=== PATIENT | male | born 1950 | race Caucasian/White ===

== ENCOUNTER 2018-11-17 11:27 | Emergency (ER) | payer MEDICARE, BC ==
[2018-11-17 11:32] VITALS: TEMP 97.8
--- NOTE | 2018-11-17 11:48 | ED ---
Arrhythmia/Palpitations HPI - General Chief Complaint: Arrhythmia/Palpitations Stated Complaint: abnormal EKG Time Seen by Provider: 11/17/18 11:34 Source: patient Mode of arrival: ambulatory Limitations: no limitations - History of Present Illness Initial Comments: 68-year-old male being sent from Dr. Abad office for new onset A. fib. Patient states he's had symptoms of anxiety and dizziness for the last month. He admits to intermittent shortness of breath but denies any chest pain. Patient has no history of cardiac arrhythmias or cardiac disease. He denies any history of thyroid disease or stimulant use. The patient is state that the y just started seeing this primary care physician as they just moved back to [place]. Patient has no established slp. Patient denies any history of DVT/PE, recent surgery, active cancer. - Related Data Home Medications Medication Instructions Recorded Confirmed Tamsulosin [Flomax] 0.4 mg PO DAILY 11/17/18 11/17/18 Previous Rx's Medication Instructions Recorded Aspirin 81 mg PO DAILY #30 chewable 11/17/18 Metoprolol Tartrate 25 mg PO BID #60 tab 11/17/18 Allergies Allergy/AdvReac Type Severity Reaction Status Date / Time No Known Allergies Allergy Verified 11/17/18 11:29 Review of Systems ROS Statement: Those systems with pertinent positive or pertinent negative responses have been documented in the HPI. Review of Systems Constitutional: Denies fever, chills Eyes: Denies change in vision, Denies pain Ears, nose, mouth, throat: Denies headaches, Denies sore throat Cardiovascular: Denies chest pain. Positive palpitations Respiratory: Positive shortness of breath, Denies cough Gastrointestinal: Denies abdominal pain. Denies nausea, vomiting, diarrhea. Genitourinary: Denies hematuria, Denies infections Musculoskeletal: Denies pain, Denies swelling Integumentary: Denies rash Neurological: Denies headache, focal weakness, focal numbness Psychiatric: Positive anxiety, Denies depression Hematologic/Lymphatic: Denies easy bleeding or bruising ROS Other: All systems not noted in ROS Statement are negative. Past Medical History Past Medical History: Prostate Disorder History of Any Multi-Drug Resistant Organisms: None Reported Past Surgical History: Orthopedic Surgery Past Psychological History: Anxiety Smoking Status: Never smoker Past Alcohol Use History: Daily Past Drug Use History: None Reported General Exam - General Exam Comments Initial Comments: General: Awake, alert, No acute Distress HENT: Normocephalic. Atraumatic Eyes: PERRL. EOMI. No scleral icterus. No injected conjunctiva Neck: Full ROM Chest/Lungs: Clear to auscultation bilaterally. No wheezing, rhonchi, or rales Cardiac: Irregular irregular. No murmurs or rubs. No edema. No abdominal bruit Abdomen/GI: Soft, nontender, nondistended. No rebound, guarding, or rigidity. Musculoskeletal: Full ROM Skin: Warm, dry, intact Neurologic: A/Ox3, no weakness, no sensory deficit, no abnormal gait, no coordination deficit Limitations: no limitations Course Vital Signs 11/17/18 11/17/18 11/17/18 11:29 12:06 13:07 Temperature 97.8 F Pulse Rate 89 89 82 Respiratory 18 18 20 Rate Blood Pressure 131/85 131/85 O2 Sat by Pulse 96 98 97 Oximetry EKG Findings - EKG Comments: EKG Findings:: EKG shows atrial fibrillation at a rate of [address] segment elevation, depression. No prolonged QT/QTc or WA interval. N Medical Decision Making - Medical Decision Making 68-year-old male presenting from primary care physician's office of new-onset A. fib. Initial exam the patient is awake, alert, no acute distress. VSS. Patient is not in A. fib with RVR. His EKG from the physician's office shows a rate of 82. His CHADVASC2 score is 1. Patient's laboratory workup here is unremarkable. He has no shortness of breath or symptoms consistent with a PE, and therefore that workup was not done. He has no chest pain, back pain, pulse differential to suggest that his symptoms are secondary to aortic pathology. I spoke with Dr. Sonu VILLARREAL who saw the patient. She stated that the family was concerned about being discharged home on Eliquis secondary to the patient's father's history of intracranial hemorrhage. I spoke with Dr. Sinha, who spoke with the patient and cardiology. At this and the patient will be discharged home on a low-dose beta ralph as well as Aspirin. He is instructed to follow u p with Dr. Fried outpatient. No further emergent workup indicated. The patient was given return to ED instructions. They were instructed to follow up with their primary care provider. Stable for discharge at this time. - Lab Data Result diagrams: 11/17/18 11:55 11/17/18 11:55 Lab Results 11/17/18 11/17/18 11/17/18 Range/Units 11:55 11:55 11:55 WBC 5.0 (3.8-10.6) k/uL RBC 4.31 (4.30-5.90) m/uL Hgb 13.9 (13.0-17.5) gm/dL Hct 41.6 (39.0-53.0) % MCV 96.6 (80.0-100.0) fL MCH 32.3 (25.0-35.0) pg MCHC 33.4 (31.0-37.0) g/dL RDW 14.4 (11.5-15.5) % Plt Count 217 (150-450) k/uL Neutrophils % 80 % Lymphocytes % 10 % Monocytes % 6 % Eosinophils % 2 % Basophils % 1 % Neutrophils # 4.0 (1.3-7.7) k/uL Lymphocytes # 0.5 L (1.0-4.8) k/uL Monocytes # 0.3 (0-1.0) k/uL Eosinophils # 0.1 (0-0.7) k/uL Basophils # 0.0 (0-0.2) k/uL Sodium 139 (137-145) mmol/L Potassium 4.4 (3.5-5.1) mmol/L Chloride 104 (98-107) mmol/L Carbon Dioxide 27 (22-30) mmol/L Anion Gap 8 mmol/L BUN 10 (9-20) mg/dL Creatinine 0.79 (0.66-1.25) mg/dL Est GFR (CKD-EPI)AfAm >90 (>60 ml/min/1.73 sqM) Est GFR (CKD-EPI)NonAf >90 (>60 ml/min/1.73 sqM) Glucose 113 H (74-99) mg/dL Calcium 9.2 (8.4-10.2) mg/dL Magnesium 2.1 (1.6-2.3) mg/dL Troponin I (0.000-0.034) ng/mL NT-Pro-B Natriuret Pep 1300 pg/mL TSH 1.120 (0.465-4.680) mIU/L 07/29/19 Range/Units 11:55 WBC (3.8-10.6) k/uL RBC (4.30-5.90) m/uL Hgb (13.0-17.5) gm/dL Hct (39.0-53.0) % MCV (80.0-100.0) fL MCH (25.0-35.0) pg MCHC (31.0-37.0) g/dL RDW (11.5-15.5) % Plt Count (150-450) k/uL Neutrophils % % Lymphocytes % % Monocytes % % Eosinophils % % Basophils % % Neutrophils # (1.3-7.7) k/uL Lymphocytes # (1.0-4.8) k/uL Monocytes # (0-1.0) k/uL Eosinophils # (0-0.7) k/uL Basophils # (0-0.2) k/uL Sodium (137-145) mmol/L Potassium (3.5-5.1) mmol/L Chloride (98-107) mmol/L Carbon Dioxide (22-30) mmol/L Anion Gap mmol/L BUN (9-20) mg/dL Creatinine (0.66-1.25) mg/dL Est GFR (CKD-EPI)AfAm (>60 ml/min/1.73 sqM) Est GFR (CKD-EPI)NonAf (>60 ml/min/1.73 sqM) Glucose (74-99) mg/dL Calcium (8.4-10.2) mg/dL Magnesium (1.6-2.3) mg/dL Troponin I <0.012 (0.000-0.034) ng/mL NT-Pro-B Natriuret Pep pg/mL TSH (0.465-4.680) mIU/L Disposition Clinical Impression: Atrial fibrillation Disposition: HOME SELF-CARE Condition: Good Instructions (If sedation given, give patient instructions): A-fib (Atrial Fibrillation) (ED), A-fib (Atrial Fibrillation) (DC) Prescriptions: Aspirin 81 mg PO DAILY #30 chewable Metoprolol Tartrate 25 mg PO BID #60 tab Is patient prescribed a controlled substance at d/c from ED?: No Referrals: Yisel Abad DO [Primary Care Provider] - 1-2 days Saturnino Fried MD [STAFF PHYSICIAN] - 1-2 days
[2018-11-17 12:11] LABS: Basophils % (A) 1 %; Eosinophils # (A) 0.1 k/uL (0-0.7); Eosinophils % (A) 2 %; HCT 41.6 % (39.0-53.0); HGB 13.9 gm/dL (13.0-17.5); Lymphocytes # (A) 0.5 k/uL (1.0-4.8); Lymphocytes % (A) 10 %; MCH 32.3 pg (25.0-35.0); MCHC 33.4 g/dL (31.0-37.0); MCV 96.6 fL (80.0-100.0); Mean Platelet Volume 6.9; Monocytes # (A) 0.3 k/uL (0-1.0); Monocytes % (A) 6 %; Neutrophils % (A) 80 %; Platelet Count 217 k/uL (150-450); RBC 4.31 m/uL (4.30-5.90); RDW 14.4 % (11.5-15.5)
[2018-11-17 12:21] LABS: African American GFR (CKD) >90 (>60 ml/min/1.73 sqM); Anion Gap 8 mmol/L; Blood Urea Nitrogen 10 mg/dL (9-20); Calcium 9.2 mg/dL (8.4-10.2); Carbon Dioxide 27 mmol/L (22-30); Chloride 104 mmol/L (98-107); Glucose 113 mg/dL (74-99); Magnesium 2.1 mg/dL (1.6-2.3); Potassium 4.4 mmol/L (3.5-5.1); Sodium 139 mmol/L (137-145)
--- NOTE | 2018-11-17 12:36 | XR ---
EXAMINATION TYPE: XR chest 2V DATE OF EXAM: 11/17/2018 COMPARISON: NONE HISTORY: Chest pain TECHNIQUE: Frontal and lateral views of the chest are obtained. FINDINGS: There is no focal air space opacity, pleural effusion, or pneumothorax seen. The cardiac silhouette size is within normal limits. The osseous structures are intact. There are overlying car diac leads. The aorta is dense. IMPRESSION: No acute cardiopulmonary process.
[2018-11-17 15:03] VITALS: BP 132/74; PULSE 79; RESP 18
--- NOTE | 2018-11-17 15:31 | P.CONS ---
History of Present Illness - History of Present Illness Patient is a pleasant 68-year-old gentleman was sent in from Dr. [place] for new onset atrial fibrillation although present patient is rate controlled. Patient recently moved from to [place] from [place] went to see Dr. Han's office because of his anxiety symptoms and dizziness has been going on for more than a month. Patient denied any shortness of breath chest pain. Patient denied any fever chills nausea vomiting dysuria although lab workup is negative including TSH. Patient has on and off palpitations and his says his heart rate goes to as high as 100. Patient's GARCIA - vasc score is 1, just states patient denied any history of emphysematous hypertension although there is mildly elevated BNP there is no evidence of congestive heart failure clinically. Because of that reason I do not believe patient will need to be admitted to the hospital patient will require aspirin 81 mg and patient will be discharged on 25 twice a day of metoprolol. I discussed his case with cardiology on phone was agreeable to follow up with him as an outpatient referral will be given to the patient and patient will be discharged today from ER and probably will not need any hospitalization and ER physician is agreeable with the plan and patient is agreeable with the plan discussed with the patient and family members. Review of Systems REVIEW OF SYSTEMS: CONSTITUTIONAL: No fever, no malaise, no fatigue. HEENT: No recent visual problems or hearing problems. Denied any sore throat. CARDIOVASCULAR: No chest pain, orthopnea, PND, PULMONARY: No shortness of breath, no cough, no hemoptysis. GASTROINTESTINAL: No diarrhea, no nausea, no vomiting, no abdominal pain. NEUROLOGICAL: No headaches, no weakness, no numbness. HEMATOLOGICAL: Denies any bleeding or petechiae. GENITOURINARY: Denies any burning micturition, frequency, or urgency. MUSCULOSKELETAL/RHEUMATOLOGICAL: Denies any joint pain, swelling, or any muscle pain. ENDOCRINE: Denies any polyuria or polydipsia. The rest of the 14-point review of systems is negative. Past Medical History Past Medical History: Prostate Disorder History of Any Multi-Drug Resistant Organisms: None Reported Past Surgical History: Orthopedic Surgery Past Psychological History: Anxiety Smoking Status: Never smoker Past Alcohol Use History: Daily Past Drug Use History: None Reported Medications and Allergies Home Medications Medication Instructions Recorded Confirmed Type Aspirin 81 mg PO DAILY #30 chewable 11/17/18 Rx Metoprolol Tartrate 25 mg PO BID #60 tab 11/17/18 Rx Tamsulosin [Flomax] 0.4 mg PO DAILY 11/17/18 11/17/18 History Allergies Allergy/AdvReac Type Severity Reaction Status Date / Time No Known Allergies Allergy Verified 11/17/18 11:29 Physical Exam Vitals: Vital Signs Temp Pulse Resp BP Pulse Ox 11/17/18 15:01 79 18 132/74 98 11/17/18 13:07 82 20 131/85 97 11/17/18 12:06 89 18 98 11/17/18 11:29 97.8 F 89 18 131/85 96 Intake and Output 11/17/18 11/17/18 11/17/18 06:59 14:59 22:59 Other: Weight 103.873 kg PHYSICAL EXAMINATION: GENERAL: The patient is alert and oriented x3, not in any acute distress. Well developed, well nourished. HEENT: Pupils are round and equally reacting to light. EOMI. No scleral icterus. No conjunctival pallor. Normocephalic, atraumatic. No pharyngeal erythema. No thyromegaly. CARDIOVASCULAR: S1 and S2 present. No murmurs, rubs, or gallops. PULMONARY: Chest is clear to auscultation, no wheezing or crackles. ABDOMEN: Soft, nontender, nondistended, normoactive bowel sounds. No palpable organomegaly. MUSCULOSKELETAL: No joint swelling or deformity. EXTREMITIES: No cyanosis, clubbing, or pedal edema. NEUROLOGICAL: Gross neurological examination did not reveal any focal deficits. SKIN: No rashes. Results CBC & Chem 7: 11/17/18 11:55 11/17/18 11:55 Labs: Abnormal Lab Results - Last 24 Hours (Table) 11/17/18 11/17/18 Range/Units 11:55 11:55 Lymphocytes # 0.5 L (1.0-4.8) k/uL Glucose 113 H (74-99) mg/dL Assessment and Plan Plan: -New-onset atrial fibrillation presently rate controlled, further management and follow-ups as mentioned above echocardiogram can be done as an outpatient -Benign prostatic hypertrophy -Anxiety disorder patient will follow-up with Dr. Han again for management of his anxiety with SSRIs and as needed benzodiazepines Patient probably can be discharged from medical perspective and will not need to be hospitalized.
== END 2018-11-17 15:03 | disposition home or self-care (01) ==
LOC: EC 11:27
DX: I48.91 Unspecified atrial fibrillation (principal); N40.0 Benign prostatic hyperplasia without lower urinary tract symptoms; F41.9 Anxiety disorder, unspecified; Z79.82 Long term (current) use of aspirin; Z79.899 Other long term (current) drug therapy
CPT/HCPCS: 36415; 71046; 80048; 83735; 83880; 84443; 84484; 85025; 93005; 99285